=== PATIENT | male | born 1950 | race Caucasian/White ===

== ENCOUNTER → 2019-12-03 | Outpatient (CLI) | payer MEDICARE, OTHER ==
--- NOTE | 2019-12-03 15:54 | 2DMMODE ---
[place] [address] 2 D/M-MODE ECHOCARDIOGRAM Name: ENRIQUE TABARES Room: [facility]#: [id number] Admission: 12/03/19 Attend Phys: Denilson Romero, Discharge: Date of : 46 Date of Service: 12/03/19 1552 Report #: [id number] THIS REPORT FOR: cc: Julia Mckeon MD, Katrina MD Holkins,Hai Mar MD [facility] ~ APPROVED REPORT Study performed: 12/03/2019 11:19:16 EXAM: Comprehensive 2D, Doppler, and color-flow Echocardiogram Patient Location: Out-Patient BSA: 2.19 HR: 65 bpm BP: 135/88 mmHg Other Information Study Quality: Good Indications Chest Pain 2D Dimensions IVSd: 14.77 (7-11mm) LVOT Diam: 20.23 (18-24mm) LVDd: 48.48 mm PWd: 11.30 (7-11mm) Ascending Ao: 34.34 (22-36mm) LVDs: 33.55 (25-40mm) Aortic Root: 28.47 mm Volumes Left Atrial Volume (Systole) LA ESV Index: 17.80 mL/m2 Aortic Valve AoV Peak Simone.: 1.43 m/s AO Peak Gr.: 8.18 mmHg LVOT Max P.25 mmHg AO Mean Gr.: 4.57 mmHg LVOT Mean P.38 mmHg LVOT Max V: 0.90 m/s AO V2 VTI: 27.31 cm LVOT Mean V: 0.53 m/s BEAR (VTI): 2.11 cm2 LVOT V1 VTI: 17.97 cm Mitral Valve E/A Ratio: 0.64 [place] [address] 2 D/M-MODE ECHOCARDIOGRAM Name: ENRIQUE TABARES Room: [facility]#: [id number] Admission: 12/03/19 Attend Phys: Denilson Romero, Discharge: Date of : 46 Date of Service: 12/03/19 1552 Report #: [id number] MV Decel. Time: 300.43 ms MV E Max Simone.: 0.45 m/s MV PHT: 87.13 ms MVA (PHT): 2.53 cm2 TDI E/Lateral E': 11.25 E/Medial E': 7.50 Medial E' Simone.: 0.06 m/s Lateral E' Simone.: 0.04 m/s Pulmonary Valve PV Peak Ismone.: 0.77 m/s PV Peak Gr.: 2.37 mmHg Left Ventricle The left ventricle is normal size. There is normal LV segmental wall motion. Mild concentric left ventricular hypertrophy. Left ventricular systolic function is normal. The left ventricular ejection fraction is within the normal range. LVEF is 60-65%. Grade I - abnormal relaxation pattern. Right Ventricle The right ventricle is normal size. The right ventricular systolic function is normal. Atria The left atrium size is normal. The right atrium size is normal. Aortic Valve Mild aortic valve sclerosis. No aortic regurgitation is present. There is no aortic valvular stenosis. Mitral Valve The mitral valve is normal in structure. There is no mitral valve regurgitation noted. No evidence of mitral valve stenosis. Tricuspid Valve The tricuspid valve is normal in structure. There is no tricuspid valve regurgitation noted. Pulmonic Valve The pulmonary valve is normal in structure. Mild pulmonic regurgitation. Great Vessels The aortic root is normal in size. IVC is [place] [address] 2 D/M-MODE ECHOCARDIOGRAM Name: ENRIQUE TABARES Room: [facility]#: [id number] Admission: 12/03/19 Attend Phys: Denilson Romero, Discharge: Date of : 46 Date of Service: 12/03/19 1552 Report #: [id number] collapses >50% with inspiration. Pericardium There is no pericardial effusion. <Conclusion> The left ventricle is normal size. Mild concentric left ventricular hypertrophy. Left ventricular systolic function is normal. The left ventricular ejection fraction is within the normal range. LVEF is 60-65%. Grade I - abnormal relaxation pattern. The right ventricle is normal size. The left atrium size is normal. Mild aortic valve sclerosis. No aortic regurgitation is present. There is no aortic valvular stenosis. The mitral valve is normal in structure. The tricuspid valve is normal in structure. IVC is normal in size and collapses >50% with inspiration. There is no pericardial effusion. There is normal LV segmental wall motion. <ELECTRONICALLY SIGNED> By: Hai Denton MD, [facility] 12/03/19 1552 155 155 Hai Denton MD, [facility] /INF
--- NOTE | 2019-12-03 18:06 | CARDNUC ---
[place] [address] CARDIAC NUCLEAR IMAGING REPORT Name: ENRIQUE TABARES Room: [facility]#: [id number] Admission: 12/03/19 Attend Phys: Denilson Romero, Discharge: Date of : 46 Date of Service: 12/03/19 1804 Report #: [id number] THIS REPORT FOR: cc: Julia Mckeon MD, Katrina MD Liston, Michael J. MD [facility] ~ APPROVED REPORT Study performed: 12/03/2019 08:00:00 Indication: Chest pain Patient Location: Out-Patient Stress Tech: Michelle Silverio Stress Nurse: Juliana Walters RN Ht: 5 ft 10 in Wt: 225 lbs BSA: 2.19 m2 BMI: 32.28 Medical History Medical History: HTN Medications: AMLODIPINE, ASA-81 Allergies: No known drug allergies Cardiac Risk Factors: Age, HTN Exercise History: Physically active Resting Data Rest SPECT myocardial perfusion imaging was performed in supine position 30 minutes following the intravenous injection of 10.2 mCi of Tc-99m Sestamibi. Time of rest injection: 08:20 The images were gated to evaluate regional wall motion and calculate left ventricular ejection fraction. Administration Route: IV Administration Site: Right Arm Pharmacologic Stress Pharmacologic stress test was performed by injecting Regadenoson 0.4 mg IV push over 10-15 seconds immediately followed by the intravenous injection of 29.7 mCi of Tc-99m Sestamibi. Time of stress injection: 10:25 Administration Route: IV Administration Site: Right Arm Heart Rate at time of stress injection: 76 bpm. Gated Stress SPECT was performed 45 [place] [address] CARDIAC NUCLEAR IMAGING REPORT Name: ENRIQUE TABARES Room: [facility]#: [id number] Admission: 12/03/19 Attend Phys: Denilson Romero, Discharge: Date of : 46 Date of Service: 12/03/19 1804 Report #: [id number] injection. The images were gated to evaluate regional wall motion and calculate left ventricular ejection fraction. Prone imaging was performed. Stress Test Details Stress Test: Pharmacologic stress testing performed using 0.4 mg of regadenoson per 5 mL given IV over 10 seconds. Reason for pharmacologic stress test: ABNORMAL EKG. HR Max Heart Rate (APMHR): 149 bpm Resting HR: 55 bpm Target HR (85% APMHR): 126 bpm Max HR Achieved: 86 bpm % of APMHR: 57 Recovery HR: 75 bpm BP Resting BP: 135/88 mmHg Max BP: 155/86 mmHg Recovery BP: 160/92 mmHg ECG Resting ECG: Sinus Rhythm, RBBB Stress ECG: Sinus Rhythm, RBBB ST Change: None Arrhythmia: None Recovery ECG: Sinus Rhythm, RBBB Recovery ST Change: None Recovery Arrhythmia: None Clinical Reason for Termination: Completed protocol Exercise duration: 0 min sec Exercise capacity: 1 METs The patient tolerated Lexiscan infusion without significant cardiac symptoms. Stress ECG Conclusion The baseline EKG shows sinus rhythm with right bundle branch block. There were no significant ST segment abnormalities. EKGs obtained during and post Lexiscan infusion show sinus rhythm with right bundle branch block with no significant ST segment changes when compared to baseline. There were no stress-induced arrhythmias. Study Quality Study: Good Lung Uptake: 6 [place] [address] CARDIAC NUCLEAR IMAGING REPORT Name: ENRIQUE TABARES Room: [facility]#: [id number] Admission: 12/03/19 Attend Phys: Denilson Romero, Discharge: Date of : 46 Date of Service: 12/03/19 1804 Report #: [id number] Study Data At rest, the left ventricular ejection fraction was 61%.. Post stress, the left ventricular ejection was 57%.. TID = 1.11. Perfusion Perfusion images show a small in size severe in intensity reversible defect involving the apex. No other significant fixed or reversible defects are identified. Wall Motion Normal left ventricular wall motion. Nuclear Conclusion ECG Findings: negative for ischemia Clinical Findings: negative for ischemia Nuclear Findings: positive for ischemia Exercise Capacity: not assessed Left Ventricular Function: Preserved Risk Study: moderate Global LV systolic function is preserved. There is a small in size reversible defect at the apex suggesting apical ischemia. This is a moderate risk study. <Conclusion> The baseline EKG shows sinus rhythm with right bundle branch block. There were no significant ST segment abnormalities. EKGs obtained during and post Lexiscan infusion show sinus rhythm with right bundle branch block with no significant ST segment changes when compared to baseline. There were no stress-induced arrhythmias. <ELECTRONICALLY SIGNED> By: Denilson Romero MD, [facility] 12/03/191803 03 03 Denilson Romero MD, FACC /INF
== END ==
LOC: M.NUC 07:58
DX: I08.8 Other rheumatic multiple valve diseases (principal); R94.31 Abnormal electrocardiogram [ECG] [EKG]

== ENCOUNTER 2019-12-17 10:15 | Observation (INO) | payer MEDICARE, OTHER ==
[~2019-12-17] VITALS: Ht 180.3 cm; Wt 101.6 kg
[2019-12-17] VITALS (12 sets, daily range): BP systolic 119–137; BP diastolic 66–78
[~2019-12-17 10:15] MED LIST: ASA81BEC PO; DEPO-TESTO200 MG/1 M IM; NORVASC10 MG PO
[2019-12-17 10:52] LABS: HEMATOCRIT 44.6 % (42.0-52.0); HEMOGLOBIN 15.4 gm/dL (14.0-18.0); MCH 32.4 pg (26.0-34.0); MCHC 34.5 g/dL (28.0-37.0); MCV 93.9 fL (80.0-100.0); RBC 4.75 mil/uL (4.50-6.00); RDW-CV 14.2 % (10.5-14.5); WBC 6.3 thou/uL (4.0-11.0)
[2019-12-17 10:56] LABS: ANION GAP 9 mmol/L (7-16); BUN 21 mg/dL (7-18); CALCIUM 7.7 mg/dL (8.5-10.1); CHLORIDE 109 mmol/L (98-107); CO2 24 mmol/L (21-32); CREATININE 1.1 mg/dL (0.6-1.3); GLUCOSE 88 mg/dL (70-99); POTASSIUM 3.8 mmol/L (3.5-5.1); SODIUM 142 mmol/L (136-145)
[2019-12-17 10:58] LABS: APTT 29.6 Seconds (25.0-31.3); INR 1.1; PROTIME 11.4 Seconds (9.20-11.50)
[2019-12-17 11:01] LABS: ALBUMIN 3.1 g/dL (3.4-5.0); ALKALINE PHOSPHATASE 65 U/L (46-116); CHOLESTEROL 143 mg/dL (<200); HDL CHOLESTEROL 27 mg/dL (>40); LDL CHOLESTEROL 95 mg/dL (<100); SGOT 14 U/L (15-37); SGPT 28 U/L (30-65); TC:HDL 5.3 Ratio (Not establshd); TOTAL BILIRUBIN 0.3 mg/dL (<0.1-1.0); TOTAL PROTEIN 7.1 g/dL (6.4-8.2); TRIGLYCERIDE 107 mg/dL (<150); VLDL 21 mg/dL (<40)
[2019-12-17 11:05] LABS: SERUM ASSESSMENT Clear
[2019-12-17] MEDS ORDERED: IMDUR 30 MG TAB30 M1 PO (11:45)
[2019-12-17] MEDS ORDERED: NITROSTAT0.4 M1 SUBQ (11:47)
--- NOTE | 2019-12-17 15:30 | EKG ---
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1950 Requested By: Denilson Romero Order Number: [id number] Parisa MD: Denilson Romero Measurements Intervals [place] Rate: 51 P: -25 CT: 218 QRS: -57 QRSD: 169 T: -17 QT: 447 QTc: 412 Interpretive Statements Sinus rhythm Borderline prolonged CT interval RBBB and LAFB Left ventricular hypertrophy No previous ECG available for comparison Electronically Signed On 12-17-2019 15:29:38 CDT by Denilson Romero [email or web address] <ELECTRONICALLY SIGNED> By: Denilson Romero MD, [facility] 12/17/19 1529 1045 1045 Denilson Romero MD, [facility] /EPI
--- NOTE | 2019-12-17 15:31 | EKG ---
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1950 Requested By: Denilson Romero Order Number: [id number] Parisa MD: Denilson Romero Measurements Intervals [place] Rate: 43 P: -25 IA: 225 QRS: -57 QRSD: 145 T: -16 QT: 463 QTc: 392 Interpretive Statements Sinus bradycardia Borderline prolonged IA interval RBBB and LAFB Left ventricular hypertrophy No previous ECG available for comparison Electronically Signed On 12-17-2019 15:30:16 CDT by Denilson Romero [email or web address] <ELECTRONICALLY SIGNED> By: Denilson Romero MD, [facility] 12/17/19 1530 1306 1306 Denilson Romero MD, [facility] /EPI
--- NOTE | 2019-12-17 20:16 | NUR ---
PT ARRIVED ON THE UNIT FROM MANAGER PLANNING AROUND 1530. VSS, A&OX4, SB WITH 1*AV BLOCK AND BBB ON TELE, ROOM AIR, RIGHT GROIN SITE, DRESSING CLEAN DRY AND INTACT, ORDERED IMMOBILITY FOR 4 HOURS, PT UP AD TEREZA AT 1730, ADMISSION COMPLETED, POSSESSIONS AND CALL LIGHT WITHIN REACH, HOURLY ROUNDING PERFORMED
[2019-12-18 04:00] VITALS: BP 143/80
[2019-12-18 05:35] LABS: HEMATOCRIT 48.7 % (42.0-52.0); HEMOGLOBIN 16.8 gm/dL (14.0-18.0); MCH 32.2 pg (26.0-34.0); MCHC 34.4 g/dL (28.0-37.0); MCV 93.5 fL (80.0-100.0); MPV 9.4 fl. (7.2-11.1); RBC 5.21 mil/uL (4.50-6.00); RDW-CV 14.2 % (10.5-14.5); WBC 8.5 thou/uL (4.0-11.0)
[2019-12-18 06:11] LABS: ALBUMIN 3.3 g/dL (3.4-5.0); CALCIUM 8.2 mg/dL (8.5-10.1); CREATININE 1.2 mg/dL (0.6-1.3); POTASSIUM 3.7 mmol/L (3.5-5.1); TOTAL BILIRUBIN 0.5 mg/dL (<0.1-1.0); TOTAL PROTEIN 7.6 g/dL (6.4-8.2)
--- NOTE | 2019-12-18 06:35 | NUR ---
PATIENT PROGRESSING TOWARDS GOALS: RIGHT GROIN CATH SITE WITHOUT HEMATOMA OR BLEEDING. DRESSING C/D/I. PATIENT DENIES CHEST PAIN OR DISCOMFORT. ANTICIPATING DISCHARGE HOME TODAY. CALL LIGHT WITHIN REACH
[2019-12-18 08:00] VITALS: BP 128/81
[2019-12-18] MEDS ORDERED: ATORVASTATIN CA20 MG PO (09:21)
[2019-12-18] MEDS ORDERED: EFFIENT10 MG PO (09:21)
--- NOTE | 2019-12-18 09:45 | NUR ---
Pt is A&O. Resides at home with . Independent. Pt uses a cpap at [facility], no other DME. No hx of HH or SNF. Anticipate dc to home today. CM notarized a DPOA for Pt, copy placed on Pt's medical chart. No needs.
[2019-12-18 10:02] VITALS: BP 127/73
[2019-12-18 10:03] VITALS: BP 128/81
--- NOTE | 2019-12-18 11:20 | NUR ---
ASSUMED PT CARE AT 0730. ASSESSMENT COMPLETED CHARTED. NO C/O PAIN OR DISCOMFORT. RESTING IN BED MOST OF THE MORNING. RIGHT GROIN C/D/I. DISCHARGE APPROVED AND WENT OVER WITH PT. IV AND HEART MONITOR REMOVED. PT RIDE ARRIVED AND PT LEFT AROUND 1107 WITH ALL BELONGINGS. NO COMMENTS, QUESTIONS, OR CONCERNS NOTED.
--- NOTE | 2019-12-18 17:05 | EKG ---
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1950 Requested By: Denilson Romero Order Number: [id number] Reading MD: Hai Denton Measurements Intervals [place] Rate: 52 P: -19 ID: 216 QRS: -56 QRSD: 174 T: -18 QT: 444 QTc: 413 Interpretive Statements Sinus rhythm Borderline prolonged ID interval RBBB and LAFB Probable left ventricular hypertrophy Compared to ECG 12/17/2019 13:06:59 Sinus bradycardia no longer present Electronically Signed On 12-18-2019 17:04:04 CDT by Hai Denton [email or web address] <ELECTRONICALLY SIGNED> By: Hai Denton MD, [facility] 12/18/19 1704 043 043 Hai Denton MD, [facility] /EPI
--- NOTE | 2019-12-19 12:58 | CARD ---
[address] [address] CARDIAC CATH REPORT Name: ENRIQUE TABARES Room: [address] Tamara Rob#: [id number] Admission: 12/17/19 Attend Phys: Denilson Romero MD Discharge: 12/18/19 Date of : 46 Report #: [id number] THIS REPORT FOR: //name// cc: Julia Mckeon MD, Katrina MD ~ APPROVED REPORT Study performed: 12/17/2019 10:21:27 Patient Details Patient Status: Out-Patient Room #: The patient is a 69 year-old male Event Personnel Denilson Romero Aeronautical Inspector, Jayant Klein RN Ear Nose Throat Physician, Batsheva Ibrahim RTR ScrTien burton Brad NATUROPATHIC PHYSICIAN Monitor Dr. Denton interventional cardiology Procedures Performed Art Access - R femoral artery* Left Heart Cath w/or w/o Coronaries [id number] [facility] Hemostasis w/ Angioseal FRANCA Place w/wo Plasty Single LAD [id number] FRANCA Place w/wo Plasty Addl BR DIAG 1 C9601 DESADDL Indication Positive stress test Risk Factors Hypercholesterolemia, Hypertension Admission/Lab Medications/Medications given during procedure Angiomax bolus and infusion Procedure Narrative The patient was brought electively to the Cardiac Catheterization Laboratory and was prepped and draped in a sterile manner. The right femoral was infiltrated with 2% Lidocaine subcutaneous anesthesia. A 6F Sheath sheath was inserted into the RFA. Coronary angiography was performed using coronary diagnostic catheters. The right coronary system was accessed and visualized with a JR4 catheter. The left coronary system was accessed and visualized with a JL4 catheter. The left ventricle was accessed and visualized with a Pig Tail catheter. Left ventricular/Aortic Valve gradient assessed via catheter pullback. Left ventriculogram was performed in PHILLIPS projection. The patient tolerated the procedure well and [place] [address] CARDIAC CATH REPORT Name: ENRIQUE TABARES Room: [address]#: [id number] Admission: 12/17/19 Attend Phys: Denilson Romero MD Discharge: 12/18/19 Date of : 46 Report #: [id number] associated with the procedure. There was no hematoma. Intraoperative Conscious Sedation Sedation start time: 12:01 Case end Time: 12:45 Fluoro Time: 11.5 minutes Dose: DAP 490501 cGycm2 2443 mGy Contrast Type and Amount: Visipaque 225 ml Coronary Angiography The patient's coronary anatomy is right dominant. Diagnostic Cath Left Main The left main coronary artery is short and normal. The left main bifurcates into a left anterior descending and circumflex coronary artery. LAD The left anterior descending coronary artery has a 90% mid LAD stenosis after the takeoff of a large diagonal branch. There is an apical 80% narrowing. Diagonal 1 A large first diagonal branch has a 95% narrowing proximally. Circumflex The circumflex coronary artery appears normal in its proximal mid and distal portion. OM1 A first obtuse marginal branch is normal. Right Coronary The right coronary artery exhibits mild plaquing with 20% narrowing proximally and 30% narrowing distally. R PDA A right PDA branch is mildly plaqued with up to 20% narrowing proximally. RPLV A right posterior lateral branch appears normal. Left Ventriculography The left ventricle is normal in size with normal contractility. The left ventricular ejection fraction is estimated to be 60%. Left ventricular wall motion abnormalities are not present. Hemodynamics The aortic pressure is 121/64 mmHg with a mean of 82 mmHg. The left ventricular pressure is 115/4 mmHg with a mean of mmHg. The left ventricular end diastolic pressure is 15 mmHg. There was no gradient across the aortic valve upon pullback. PCI Technique Lesion Anticoagulation was achieved with Angiomax. Patient was preloaded with Angiomax IV 15 ml. Percutaneous [place] [address] CARDIAC CATH REPORT Name: ENRIQUE TABARES Room: [address]#: [id number] Admission: 12/17/19 Attend Phys: Denilson Romero MD Discharge: 12/18/19 Date of : 46 Report #: [id number] performed on the Mid left anterior descending artery segmentfirst diagonal branch segment. The lesion stenosis prior to intervention was 90% with JULIAN 3 flow. A 6F XBLAD 3.5 Guide Catheter was used to engage the ostium. A IG: BMW 190cm Interventional Guidewire was used to cross the lesion. BALLOON DILATION A Balloon catheter Trek 2.25x12 was inserted and inflated up to 10.00atm for 9seconds. STENT DEPLOYMENT A drug-eluting stent Bhaskar RX Stent 2.5X15mm was inserted and inflated up to 14.00atm for 8seconds. Final angiography reveals 0 % stenosis with JULIAN 3 flow. COMMENTS The PCI was technically complex by virtue of the bifurcation LAD diagonal lesion requiring significant lesion preparation prior to deployment of stents in both vessels PCI Technique Lesion 2 Percutaneous Coronary Intervention was performed on the first diagnonal branch segmentproximal left anterior descending artery segment. The lesion stenosis prior to intervention was 95% with JULIAN 3 flow. A 6F XBLAD 3.5 Guide Catheter was used to engage the ostium. A IG: ProwaterFlex 180CM Interventional Guidewire was used to cross the lesion. Balloon Dilation A Balloon catheter Trek RX 2.5 X 12 was inserted and inflated up to 12.00atm for 6seconds. Additional Inflation: 14.00atm for 11seconds. Stent Deployment A drug-eluting stent Bhaskar RX Stent 2.06A47gt was inserted and inflated up to 18.00atm for 6seconds. Final angiography reveals 0 % stenosis with JULIAN 3 flow. Conclusion 1. High-grade narrowings noted in the mid left anterior descending and large first diagonal branch. 80% apical LAD stenosis. 2. No other hemodynamically [place] [address] CARDIAC CATH REPORT Name: ENRIQUE TABARES Room: [address] Tamara Rob#: [id number] Admission: 12/17/19 Attend Phys: Denilson Romero MD Discharge: 12/18/19 Date of : 46 Report #: [id number] 3. Normal left ventricular systolic function. 4. Minimally elevated left ventricular end-diastolic pressure. 5. Successful PCI with deployment of drug-eluting stents at the sites of 90% mid LAD stenosis and 95% first diagonal stenosis with 0% residual narrowings at both sites following stent deployment and JULIAN-3 flow to the distal circulations Recommendations 1. Continue aggressive risk factor modification. 2. Percutaneous coronary intervention to the proximal diagonal and mid left anterior sending coronary arteries. Medications Administered Aspirin (any) Prasugrel <ELECTRONICALLY SIGNED> By: Hai Denton MD, [facility] 12/19/19 1256 1256 1256Hai Denton MD, FAC /INF
--- NOTE | 2019-12-19 16:01 | D ---
[address] [address] DISCHARGE SUMMARY Name: ENRIQUE TABARES Room: [address] Tamara Rob#: [id number] Admission: 12/17/19 Attend Phys: Denilson Rmoero MD Discharge: 12/18/19 Date of : 46 Report #: [id number] THIS REPORT FOR: //name// cc: Julia Mckeon MD, Katrina MD ~ THIS REPORT FOR: //name// CC: Julia Romero DATE OF SERVICE: 12/18/2019 DISCHARGE DIAGNOSES: 1. Coronary artery disease. 2. Unstable angina. 3. Hypertension. 4. Hyperlipidemia. PROCEDURES DURING THE HOSPITALIZATION: 1. Coronary angiography. 2. Left heart catheterization. 3. Percutaneous coronary intervention to the mid left anterior descending coronary artery and first diagonal branch with drug-eluting stent placement. HOSPITAL COURSE: The patient was brought to the cardiac catheterization lab on 12/17/2019 after an abnormal stress test. He had complaints of exertional dyspnea and chest pain consistent with progressive angina. On catheterization, he was found to have a 95% proximal diagonal and 90% mid LAD stenoses. Both vessels were fairly large in size. He received a drug-eluting stent to each without complication and excellent result. He had otherwise nonocclusive coronary artery disease. Left ventricular systolic function was normal. The patient tolerated the procedure well and without complication. He is being discharged uneventfully. DISCHARGE MEDICATIONS: Effient 10 mg p.o. daily, atorvastatin 40 mg p.o. at bedtime, aspirin 81 mg p.o. daily, amlodipine 10 mg p.o. daily, Imdur 30 mg p.o. daily, Nitrostat sublingual p.r.n., Depo-Testosterone 200 mg IM as directed. DISPOSITION: The patient has been asked to follow up with Cardiology office in 4 weeks. <ELECTRONICALLY SIGNED> By: Denilson Romero MD, [facility] 12/19/19 1601 0926 0938[facility] Centeragustin Romero MD, FAC /nt
--- NOTE | 2019-12-19 16:01 | H ---
[address] [address] HISTORY AND PHYSICAL Name: ENRIQUE TABARES Room: [address] Tamara Rob#: [id number] Admission: 12/17/19 Attend Phys: Denilson Romero MD Discharge: 12/18/19 Date of : 46 Report #: [id number] THIS REPORT FOR: //name// cc: Julia Mckeon MD, Katrina MD ~ THIS REPORT FOR: //name// CC: Julia Romero DATE OF SERVICE: 12/17/2019 CARDIOLOGY HISTORY AND PHYSICAL INDICATION: Chest pain with abnormal cardiovascular stress testing. HISTORY OF PRESENT ILLNESS: The patient is a very pleasant 69-year-old gentleman who was initially evaluated for complaints of increased chest tightness and dyspnea with exertion. Symptoms consistent with possible angina. Risk factors include hypertension and dyslipidemia. Stress testing showed preserved LV systolic function with apical ischemia. The patient is being admitted for coronary angiography and possible intervention. CURRENT MEDICATIONS: Amlodipine 10 mg daily, aspirin 81 mg daily, Imdur 30 mg daily, Nitrostat 0.4 mg sublingual p.r.n. ALLERGIES: None documented. FAMILY HISTORY: Noncontributory. SOCIAL HISTORY: The patient is a lifelong nonsmoker. He is . His is with him. PAST MEDICAL HISTORY: As per HPI. REVIEW OF SYSTEMS: A 14-point review of systems as per HPI, otherwise, unremarkable. PHYSICAL EXAMINATION: VITAL SIGNS: Stable. Blood pressure was 136/86, pulse 56 and regular. GENERAL: This is a pleasant gentleman in no distress. Mood and affect appropriate. HEENT: Extraocular muscles intact. Mucous membranes moist. NECK: Shows no jugular venous distention. There are no carotid bruits. CHEST: Reveals clear lung barboza [place] [address] HISTORY AND PHYSICAL Name: ENRIQUE TABARES Room: [address] Tamara Rob#: [id number] Admission: 12/17/19 Attend Phys: Denilson Romero MD Discharge: 12/18/19 Date of : 46 Report #: [id number] CARDIOVASCULAR: Reveals a regular rhythm without gallop or murmur. ABDOMEN: Reveals normal bowel sounds. The abdomen is soft, nontender. EXTREMITIES: Shows no edema. Peripheral pulses are 2+ and easily palpable. SKIN: Warm and dry. LABORATORY DATA: A 12-lead EKG shows sinus rhythm with right bundle branch block. There were no significant ST or T-wave abnormalities. Labs on 11/27/2019 show a normal TSH. CBC is within normal limits. Total cholesterol 167, triglycerides 181, HDL 30, LDL 101. Metabolic profile unremarkable. Liver function studies normal. Renal function studies normal. Electrolytes normal. Echocardiogram from 12/03/2019 shows normal LV size and function with an ejection fraction of 60-65%. There was mild left ventricular hypertrophy. Grade 1 diastolic dysfunction. Aortic valvular sclerosis without stenosis. The IVC was of normal in size at rest and with inspiration. Stress testing 12/03/2019 showed preserved left ventricular systolic function with an area of atypical ischemia. IMPRESSION AND RECOMMENDATIONS: 1. Abnormal stress test with symptoms to suggest progressive/unstable angina. Proceed with coronary angiography and possible intervention. 2. Hypertension, adequately controlled on current regimen. We will make further adjustments as necessary. 3. Probable hyperlipidemia. Start low dose statin agent. <ELECTRONICALLY SIGNED> By: Denilson Romero MD, FACC 12/19/19 1601 [id number] [id number] Romero MD, FACC /nt
== END 2019-12-18 11:07 | disposition home or self-care (01) ==
LOC: M.CL 10:15 → M.TBA-CV 12:39 → M.2W 16:23
PROVIDERS: ADMIT Internal Medicine Cardiovascular Disease; ATTEND Internal Medicine Cardiovascular Disease
DX: I25.110 Atherosclerotic heart disease of native coronary artery with unstable angina pectoris (principal); I10 Essential (primary) hypertension; E78.5 Hyperlipidemia, unspecified

== ENCOUNTER → 2020-06-02 | Outpatient (CLI) | payer MEDICARE, OTHER ==
[~2020-06-02] MED LIST changes: +ATORVASTATIN CA20 MG PO; +EFFIENT10 MG PO; +IMDUR 30 MG TAB30 M1 PO; +NITROSTAT0.4 M1 SUBQ
--- NOTE | 2020-06-02 16:37 | EXE ---
[place] [address] STRESS ECHOCARDIOGRAM Name: ENRIQUE TABARES Room: [facility]#: [id number] Admission: 06/02/20 Attend Phys: Denilson Romero, Discharge: Date of : 46 Date of Service: 06/02/20 1636 Report #: [id number] THIS REPORT FOR: cc: Julia Mckeon MD, Katrina MD Biggs, F. Douglas MD [facility] ~ APPROVED REPORT Study performed: 06/02/2020 15:05:25 Exam: Stress Echocardiogram Indication: Chest pain Patient Location: Out-Patient Stress Nurse: Natalie Su RN Supervising Physician: Jah Espinoza MD Ht: 5 ft 10 in HR: 57 bpm BP: 144/80 mmHg Medical History Cardiac Risk Factors: Age, , Hyperlipidemia, HTN, FHX of CAD Procedure The patient underwent an Exercise Stress Test using the Sushil Protocol. Blood pressure, heart rate, and EKG were monitored. An Echocardiogram was performed by biomass plant technician in four stages in quad fashion. At peak stress, four selected images were obtained and placed side by side with resting images for comparison. Stress Test Details Stress Test: Exercise stress testing was performed using a Sushil protocol. HR Resting HR: 57 bpm Max Heart Rate (APMHR): 149 bpm Max HR Achieved: 138 bpm Target HR (85% APMHR): 126 bpm % of APMHR: 92 Recovery HR: 87 bpm HR response to stress: Normal HR response to stress BP Resting BP: 144/80 mmHg Max BP: 233/95 mmHg Recovery BP: 172/89 [place] [address] STRESS ECHOCARDIOGRAM Name: ENRIQUE TABARES Room: [facility]#: [id number] Admission: 06/02/20 Attend Phys: Denilson Romero, Discharge: Date of : 46 Date of Service: 06/02/20 1636 Report #: [id number] BP response to stress: Abnormal hypertensive response to stress. 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 Exercise capacity: 12.61 METs Stress ECG Conclusion ECG: Non-ischemic Clinical: Non-ischemic Normal submaximal stress test. Pre-Stress Echo The resting Echocardiogram showed normal left ventricular contractility with an estimated Ejection Fraction of about 55-60%. The resting echocardiogram demonstrated normal wall motion in all wall segments. Normal wall motion in all segments on baseline images. Post-Stress Echo The stress Echocardiogram showed normal left ventricular contractility with an estimated Ejection Fraction of about 60-65%. Compared to rest, there were no stress-induced wall motion abnormalities. Normal augmentation of wall motion in all segments on post stress images. Clinical No clinical or ECG evidence [place] [address] STRESS ECHOCARDIOGRAM Name: ENRIQUE TABARES Room: [facility]#: [id number] Admission: 06/02/20 Attend Phys: Denilson Romero, Discharge: Date of : 46 Date of Service: 06/02/20 758 Report #: [id number] Conclusion Clinical Response: Non-ischemic Exercise Capacity: Superior Stress ECG Response: Non-ischemic Stress Echo Images: Non-ischemic The left ventricle is normal in size and wall thickness in both the rest and stress images. Normal stress echocardiogram with submaximal exercise stress. Other Information Study Quality: Fair <Conclusion> The left ventricle is normal in size and wall thickness in both the rest and stress images. Normal stress echocardiogram with submaximal exercise stress. <ELECTRONICALLY SIGNED> By: Armani Espinoza MD, [facility] 06/02/201635 35 35 Armani Espinoza MD, [facility] /INF
== END ==
LOC: M.CRD 14:53
PROVIDERS: ATTEND Internal Medicine Cardiovascular Disease
DX: I25.810 Atherosclerosis of coronary artery bypass graft(s) without angina pectoris (principal)